=== PATIENT | female | born 1960 | race Caucasian/White ===

== ENCOUNTER 2019-11-21 10:02 | Emergency (ER) | payer OTHER, SELFPAY ==
[2019-11-21 10:16] VITALS: BP 103/79; PULSE 91; RESP 20; TEMP 38.1; O2SAT 99
--- NOTE | 2019-11-21 10:30 | ED.URI ---
HPI - URI/Sore Throat General Chief Complaint: Upper Respiratory Infection Stated Complaint: cough/bosch/chills/ear pn Time Seen by Provider: 11/21/19 10:22 Source: patient and RN notes reviewed Mode of arrival: ambulatory Limitations: no limitations History of Present Illness HPI Narrative: Patient presents today complaining of fever up to 101, congestion, rhinorrhea, cough, headache, body aches, intermittent shortness of breath. Symptoms began yesterday morning. Denies sore throat, nausea, vomiting, diarrhea. She does report history of asthma for which she uses albuterol and Breo. She has been taking Tylenol, NyQuil without relief. MD elicited complaint: fever and cough Related Data Allergies Allergy/AdvReac Type Severity Reaction Status Date / Time Sulfa (Sulfonamide Allergy Unknown Verified 10/07/18 08:02 Antibiotics) Review of Systems Review of Systems: Narrative: CONSTITUTIONAL: Denies chills, or sweats.+ Fever, body aches EYES: Denies visual changes, redness, or discharge. ENT: Denies sore throat, or otalgia.+ Rhinorrhea, congestion CARDIOVASCULAR: Denies chest pain, palpitations, or edema. RESPIRATORY: + Cough, intermittent shortness of breath GASTROINTESTINAL: Denies abdominal pain, nausea, vomiting, or diarrhea. GENITOURINARY: Denies dysuria or hematuria. SKIN: Denies rash, itching, or wounds. MUSCULOSKELETAL: Denies back pain, joint pain, or myalgia. NEUROLOGIC: Denies numbness, tingling, or weakness.+ Headache PSYCH: Denies depression or anxiety. [facility] Past Medical History Medical History (Updated 11/21/19 @ 10:34 by Shelby Carpio, [facility], ) Allergies Asthma Headache, migraine History of diverticulitis Renal stones Surgical History Surgical History (Updated 09/02/19 @ 09:19 by Janeth Boogie CMA) History of hysterectomy Family History Family History (Updated 10/07/18 @ 08:04 by DOCTOR UNKNOWN) Sibling Patient's sister is in good health Acute myocardial infarction Mother Family history of congestive heart failure Other Cerebrovascular accident Family history of cardiovascular disease Hypertension Social History Social History (Updated 09/02/19 @ 11:24 by Janeth Boogie CMA) Smoking status: Heavy tobacco smoker Alcohol intake: current Gender identity (if verbalized by the patient): Female Comments At time of signature, I have reviewed and agree with nursing past medical, surgical, social and family history unless otherwise noted. Please see nursing chart for further information. There is no relevant family history pertinent to the presenting complaint Exam Narrative: Exam Narrative: GENERAL: Ill-appearing, well-nourished, and in no acute distress. HEAD: Normocephalic, atraumatic. EYES: EOMI. No redness or drainage. Conjunctivae normal. ENT: Mucous membranes pink and moist. Nares tested. No rhinorrhea. TMs normal bilaterally. Throat normal with postnasal drainage. Uvula midline. NECK: Normal AROM. Supple. No lymphadenopathy. CHEST: No respiratory distress. Clear to auscultation. HEART: Regular rate and rhythm. No murmur appreciated. Normal peripheral pulses. EXTREMITIES: Normal range of motion. No edema. SKIN: Warm, dry, no rash. NEURO: No focal deficits. Alert and oriented x3. Gait steady. PSYCH: Normal affect. No signs of depression or anxiety. Course Vital Signs Vital signs: Vital Signs Temperature 100.6 F H 11/21/19 10:16 Pulse Rate 91 11/21/19 10:16 Respiratory Rate 11/21/19 10:16 Blood Pressure 103/79 11/21/19 10:16 Pulse Oximetry 99 11/21/19 10:16 Temperature 100.6 F H 11/21/19 10:16 Pulse Rate 91 11/21/19 10:16 Respiratory Rate 11/21/19 10:16 Blood Pressure 103/79 11/21/19 10:16 Pulse Oximetry 99 11/21/19 10:16 Reviewed MDM - URI/Sore Throat Differential Diagnosis Differential diagnosis: Likely upper respiratory infection, viral infection, bronchitis and influenza Lab Data Attestation
== END 2019-11-21 10:38 | disposition home or self-care (01) ==
PROVIDERS: Emergency Provider Nurse Practitioner; PCP Internal Medicine
DX: J10.1 Influenza due to other identified influenza virus with other respiratory manifestations (principal); F17.200 Nicotine dependence, unspecified, uncomplicated; J45.909 Unspecified asthma, uncomplicated
CPT/HCPCS: 87804; 99213; G0463

== ENCOUNTER 2020-01-06 14:38 | Outpatient (NON) | payer OTHER, SELFPAY ==
[2020-01-07 22:44] LABS: Pan-SARS RNA: NEGATIVE (NEGATIVE); SARS-CoV-2 RNA: NEGATIVE (NEGATIVE)
== END 2020-01-06 14:39 ==
PROVIDERS: PCP Internal Medicine; Visit Provider Nurse Practitioner
DX: R50.9 Fever, unspecified (principal); Z20.828 Contact with and (suspected) exposure to other viral communicable diseases
CPT/HCPCS: 87635; U0002

== ENCOUNTER → 2020-08-15 11:14 | Outpatient (CLI) | payer OTHER, SELFPAY ==
--- NOTE | ~2020-08-15 | CT_ITS ---
EXAMINATION: CT soft tissue neck wo con DATE: 08/15/2020 11:29 INDICATION: Foreign body sensation in the throat. TECHNIQUE: Computed tomography (CT) of the neck was performed without intravenous contrast. Automated exposure control and iterative reconstruction technique were employed. The dose-length product was 3 77.80 mGy-cm. COMPARISON: 08/08/2015 FINDINGS: Likely benign 4 mm hypodense left thyroid nodule. Unchanged chronic small likely sialolith inferior r ight parotid gland. Parotid glands are otherwise normal and symmetric. Submandibular glands are also normal and symmetric. There are scattered normal-sized lymph nodes in the neck, no pathologically e nlarged lymphadenopathy. No masses or foreign bodies identified. There is circumferential edematous- appearing wall thickening in the visualized proximal esophagus. The epiglottis and aryepiglottic fold s are normal. Visualized airway is clear. Mild biapical pleural-parenchymal scarring. Orbits are norm al. There is leftward deviation of the nasal septum. Likely prosthetic device extends across a perfor ation of the anterior cartilaginous portion of the nasal septum. There are also postoperative change of bilateral antral window procedures. Orbits are unremarkable. Mastoid air cells and middle ear cavi ties are clear. Mild cervical spondylosis. IMPRESSION: 1. No abnormal masses were foreign bodies identified. 2. Diffuse wall thickening in the proximal esophagus. Correlate clinically for esophagitis. Reviewed, dictated and finalized at [facility]. ANICAL SHOP LABORER
== END ==
PROVIDERS: PCP Internal Medicine; Visit Provider Otolaryngology
DX: T17.308A Unspecified foreign body in larynx causing other injury, initial encounter (principal); J34.2 Deviated nasal septum
CPT/HCPCS: 70490

== ENCOUNTER 2020-08-23 01:37 | Emergency (ER) | payer OTHER, SELFPAY ==
--- NOTE | ~2020-08-23 | XR_ITS ---
XR knee RT min 4V 08/23/2020 02:24 INDICATION: Right knee pain PROCEDURE: 4 views right knee COMPARISON: No prior studies for comparison. FINDINGS: Fracture, dislocation or subluxation is not identified. No significant joint effusion. The soft tissues appear within normal limits. No foreign bodies are identified. Mild osteoarthritis of t he knee. IMPRESSION: 1: NO ACUTE BONE OR JOINT ABNORMALITY IDENTIFIED. Reviewed, dictated and finalized at location A. BURN
--- NOTE | ~2020-08-23 | XR_ITS ---
XR ankle RT 2V, XR ankle LT 2V 08/23/2020 02:24 Indication: Ankle pain after fall Procedure: 2 views of each ankle Comparison: No prior studies for comparison. Findings: No acute fracture, subluxation or dislocation. Small degenerative calcaneal enthesophytes. Ankle mortise intact bilaterally. Talar dome is normal bilaterally. No significant soft tissue abnorm ality. No foreign bodies. Impression: 1: No acute fracture. Reviewed, dictated and finalized at location A. ATRIC PERSONAL CARE AIDE Impression: 1: No acute fracture. Impression: 1: No acute fracture.
--- NOTE | ~2020-08-23 | XR_ITS ---
XR foot LT min 3V 08/23/2020 03:32 Indication: Left foot pain Procedure: 4 views left foot Comparison: No prior studies for comparison. Findings: Osteopenia. Small degenerative calcaneal enthesophyte. No acute fracture, subluxation or di slocation. Mild osteoarthritis of the first toe. No significant soft tissue abnormality. No radiopaqu e foreign bodies. Impression: 1: No acute fracture. Reviewed, dictated and finalized at location A. DENTIAL PROPERTY MANAGER Impression: 1: No acute fracture.
[2020-08-23 01:42] VITALS: BP 108/65; PULSE 71; RESP 16; TEMP 36.3; O2SAT 100
--- NOTE | 2020-08-23 02:02 | ED.FALL ---
HPI - Fall General Chief Complaint: Fall Stated Complaint: fall Time Seen by Provider: 08/23/20 01:44 History of Present Illness HPI Narrative: Tripped and fell down one step onto bilateral knees. Twisted her ankles in the fall. Reports 10/10 pain in the left ankle. Also pain in the right knee and ankle. She was ambulatory prior to arrival. She did not take anything for the pain. Related Data Allergies Allergy/AdvReac Type Severity Reaction Status Date / Time Sulfa (Sulfonamide Allergy Unknown Rash Verified 08/23/20 01:53 Antibiotics) Review of Systems Review of Systems: All systems reviewed & are unremarkable except as noted in HPI and below Constitutional: Constitutional: Denies chills, Denies fever(s) and Denies weakness Cardiovascular: Cardiovascular: Denies chest pain Respiratory: Respiratory: Denies dyspnea Gastrointestinal: Gastrointestinal: Denies abdominal pain, Denies nausea and Denies vomiting Musculoskeletal: Musculoskeletal: Denies back pain Neurologic: Denies numbness and Denies weakness PMFSH Past Medical History Medical History Allergies Asthma Headache, migraine History of diverticulitis Renal stones Surgical History Surgical History History of hysterectomy Family History Family History Sibling Patient's sister is in good health Acute myocardial infarction Mother Family history of congestive heart failure Other Cerebrovascular accident Family history of cardiovascular disease Hypertension Social History Social History Smoking status: Current every day smoker Alcohol intake: current Gender identity (if verbalized by the patient): Female Exam Const: General: no acute distress and alert Nutritional Appearance: well nourished Orientation/consciousness: patient oriented x3 HENMT: Head: normal to inspection Resp: Effort & Inspection: normal respiratory effort Auscultation: clear to auscultation bilaterally Cardio: Rate: regular rate Rhythm: regular rhythm Other: 2+ DP and PT pulses bilaterally. Skin: Other: abrasions to right knee Neuro: General: patient oriented x3, moves all extremities and no focal motor deficits Speech: normal speech Extrem: Other: tenderness over right patella Course Vital Signs Vital signs: Vital Signs Temperature 36.3 C L 11/24/20 01:42 Pulse Rate 71 08/23/20 01:42 Respiratory Rate 16 08/23/20 01:42 Blood Pressure 108/65 08/23/20 01:42 Pulse Oximetry 100 08/23/20 01:42 Temperature 36.3 C L 08/23/20 01:42 Pulse Rate 71 08/23/20 01:42 Respiratory Rate 16 08/23/20 01:42 Blood Pressure 108/65 08/23/20 01:42 Pulse Oximetry 100 08/23/20 01:42 MDM - Fall Medical Records Attestation: I reviewed the patient's medical records. Imaging Data Attestation: I personally reviewed and interpreted this imaging study as follows: Discharge Plan Discharge Clinical Impression: Contusion of knee Qualifiers: Encounter type: initial encounter Laterality: right Qualified Code(s): S80.01XA - Contusion of right knee, initial encounter Sprain of foot Qualifiers: Encounter type: initial encounter Laterality: unspecified laterality Qualified Code(s): S93.609A - Unspecified sprain of unspecified foot, initial encounter Patient Disposition: Home, Self-Care Condition: Stable Instructions: Contusion in Adults (ED), Foot Sprain (ED) Prescriptions: No Action azithromycin 250 mg tablet See Rx Instructions PO .COMPLEX Qty: 6 RF: 0 albuterol sulfate [ProAir HFA] 90 mcg/actuation HFA aerosol inhaler 2 puff INHALATION Q4-6H PRN (Reason: Shortness Of Breath Or Wheezing) Qty: 18 RF: 0 Trelegy Ellipta 100-62.5-25 mcg blister with device 1 inh INHALATION DAILY Qty: 28
[2020-08-23] MEDS: KETOROLAC (*BKC) 60 MG/2 ML VIAL IM (02:55)
[2020-08-23 03:50] VITALS: BP 112/80; PULSE 64; RESP 16; TEMP 36.6; O2SAT 100
[2020-08-23] MEDS: HYDROcodone/acetaminophen (*CRX) 5-325 MG TABLET 1 TAB PO (03:52)
== END 2020-08-23 03:55 | disposition home or self-care (01) ==
PROVIDERS: Emergency Provider Emergency Medicine; PCP Internal Medicine
DX: S93.609A Unspecified sprain of unspecified foot, initial encounter (principal); S80.01XA Contusion of right knee, initial encounter; J45.909 Unspecified asthma, uncomplicated; Z87.442 Personal history of urinary calculi; W01.0XXA Fall on same level from slipping, tripping and stumbling without subsequent striking against object, initial encounter
CPT/HCPCS: 73564; 73600; 73630; 96372; 99284; A9270; J1885

== ENCOUNTER 2020-10-01 01:22 | Outpatient (CLI) | payer OTHER, SELFPAY ==
[2020-10-01 20:08] LABS: SARS-CoV-2 RNA PCR Negative
== END 2020-10-01 01:23 | disposition home or self-care (01) ==
LOC: ANHCOVIDDT 01:22
PROVIDERS: PCP Internal Medicine; Visit Provider Internal Medicine Gastroenterology
DX: Z01.812 Encounter for preprocedural laboratory examination (principal); Z20.822 Contact with and (suspected) exposure to COVID-19
CPT/HCPCS: C9803; U0003

== ENCOUNTER 2020-10-04 01:36 | Day surgery (SDC) | payer OTHER, SELFPAY ==
[2020-09-19 15:39] VITALS: BMI 26.9
[2020-10-04 07:25] VITALS: BP 124/81; PULSE 93; RESP 20; TEMP 36.3; O2SAT 93
[2020-10-04] MEDS: LACTATED RINGERS 1,000 ML 150 ML IV CONT (07:31)
--- NOTE | 2020-10-04 08:34 | PM.HPGS ---
History of Present Illness History of Present Illness Consent: Risks, benefits, and alternatives have been discussed and questions answered. Patient agrees to proceed with procedure. Chief complaint: abn findings dx image, neoplasm screening Narrative: Anastasiya Marin is a 59 year old female with dysphagia and thickened esophagus by CT scan, also 5 years ago had microscopic colitis now better without medication. Review of Systems Constitutional: Constitutional: Denies headache(s) and Denies weakness Eyes: Eyes: Denies blurry vision ENT: Reports Normal hearing present, Denies headache(s) and Denies neck pain Cardiovascular: Cardiovascular: Denies chest pain and Denies dyspnea Respiratory: Respiratory: Denies dyspnea Gastrointestinal: Gastrointestinal: Reports no additional gastrointestinal complaints Genitourinary: Genitourinary: Denies dysuria Musculoskeletal: Musculoskeletal: Denies neck pain Integumentary/Breasts: Skin/Breast: Denies dry skin Neurologic: Reports Normal hearing present, Denies headache(s) and Denies weakness Psychiatric: Psychiatric: Denies anxiety Endocrine: Endocrine: Denies change in body appearance Hematologic/Lymphatic: Hematologic/Lymphatic: Denies easy bleeding Allergic/Immunologic: Allergic/Immunologic: Denies urticaria PMFSH Past Medical History Medical History (Updated 08/29/20 @ 14:09 by Oseas Baker MD) Abnormal CT scan Allergies Asthma Encounter for screening colonoscopy Headache, migraine History of diverticulitis Renal stones Surgical History Surgical History History of hysterectomy Family History Family History Sibling Patient's sister is in good health Acute myocardial infarction Mother Family history of congestive heart failure Other Cerebrovascular accident Family history of cardiovascular disease Hypertension Social History Social History Smoking packs per day: 1 Smoking cigarettes per day: 20.0 Years smoked: 30 Smoking pack-years: 30.00 Smoking status: Heavy tobacco smoker Tobacco type: cigarettes Alcohol intake: current Drinks per week: 7 Alcohol use details: WINE Substance use: never Substance use type: does not use Living arrangements: with family Gender identity (if verbalized by the patient): Female Spiritual care concerns: No Meds Home Medications and Allergies Home Medications Medication Instructions Recorded Confirmed Type albuterol sulfate 90 mcg/actuation 2 puff INHALATION Q4-6H PRN #18 gm 01/07/20 10/04/20 Rx aerosol inhaler fluticasone fur. 100 mcg-umeclid 1 inh INHALATION DAILY #28 each 07/12/20 10/04/20 Rx 62.5 mcg-vilant 25 mcg inhalat.powder peg 3350-electrolytes 236 240 ml PO Q10M 09/07/20 10/04/20 History gram-22.74 gram-6.74 gram-5.86 gram solution zalimoclpsnd-eaq-wycc-FA-vit K 1 tablet PO DAILY 09/19/20 10/04/20 History [Adults Multivitamin] pantoprazole 40 mg PO DAILY 09/19/20 10/04/20 History sodium,potassium,mag sulfates 17.5 16 oz PO ONCE #354 ml 09/19/20 10/04/20 Rx gram-3.13 gram-1.6 gram oral soln Allergies Allergy/AdvReac Type Severity Reaction Status Date / Time Sulfa (Sulfonamide Allergy Intermediate Rash Verified 10/04/20 07:22 Antibiotics) Vital Signs Vital Signs - 24 hr 10/04/20 07:25 Temperature 97.4 F L Pulse Rate 93 Respiratory Rate 20 Blood Pressure 124/81 Pulse Oximetry 93 Exam Const: General: comfortable and no acute distress HENMT: General nose exam: Normal nares present Eyes: General: appearance normal, both eyes and all related structures Neck: Neck: no JVD Resp: Auscultation: clear to auscultation bilaterally Cardio: Rate: regular rate Rhythm: regular rhythm GI: Inspection: non-distended GI Palp: Yes Soft
--- NOTE | 2020-10-04 08:38 | WPDANESEPPF ---
Anes - Initial Pre Proc Eval Procedure: Operation Date: 10/04/20 08:30 Proposed Procedures p Esophagogastroduodenoscopy&Screen Colon - Oseas Baker MD Date/Time: 10/04/20 08:38 Surgeon: Oseas Baker MD Pre Op Diagnosis: abn findings dx image, neoplasm screening Patient Data Age: 59 Gender: F Height: 5 ft 7 in Weight: 78.1 kg Last Vital Signs Temp 97.4 F L 10/04/20 07:25 Pulse 93 10/04/20 07:25 Resp 20 10/04/20 07:25 BP 124/81 10/04/20 07:25 Pulse Ox 93 10/04/20 07:25 Allergies Allergy/AdvReac Type Severity Reaction Status Date / Time Sulfa (Sulfonamide Allergy Intermediate Rash Verified 10/04/20 07:22 Antibiotics) Home Medications Medication Instructions Recorded Confirmed Type albuterol sulfate 90 mcg/actuation 2 puff INHALATION Q4-6H PRN #18 gm 01/07/20 10/04/20 Rx aerosol inhaler fluticasone fur. 100 mcg-umeclid 1 inh INHALATION DAILY #28 each 07/12/20 10/04/20 Rx 62.5 mcg-vilant 25 mcg inhalat.powder peg 3350-electrolytes 236 240 ml PO Q10M 09/07/20 10/04/20 History gram-22.74 gram-6.74 gram-5.86 gram solution vzmpgveoxhih-eoo-dmdo-FA-vit K 1 tablet PO DAILY 09/19/20 10/04/20 History [Adults Multivitamin] pantoprazole 40 mg PO DAILY 09/19/20 10/04/20 History sodium,potassium,mag sulfates 17.5 16 oz PO ONCE #354 ml 09/19/20 10/04/20 Rx gram-3.13 gram-1.6 gram oral soln Patient hx anesthesia problems: none Family hx anesthesia problems: none PMFSH Past Medical History Medical History (Updated 08/29/20 @ 14:09 by Oseas Baker MD) Abnormal CT scan Allergies Asthma Encounter for screening colonoscopy Headache, migraine History of diverticulitis Renal stones Surgical History Surgical History History of hysterectomy Family History Family History Sibling Patient's sister is in good health Acute myocardial infarction Mother Family history of congestive heart failure Other Cerebrovascular accident Family history of cardiovascular disease Hypertension Social History Social History Smoking packs per day: 1 Smoking cigarettes per day: 20.0 Years smoked: 30 Smoking pack-years: 30.00 Smoking status: Heavy tobacco smoker Tobacco type: cigarettes Alcohol intake: current Drinks per week: 7 Alcohol use details: WINE Substance use: never Substance use type: does not use Living arrangements: with family Gender identity (if verbalized by the patient): Female Spiritual care concerns: No Anes - Eval Final PreProcedure Day of Procedure 10/04/20 08:38 Patient weight: normal Heart: regular rate and rhythm Lungs: clear to auscultation Airway: Mallampati scale class II Neurological: alert and oriented Last oral intake: >/= 8 hours ASA classification: II Emergent: no Anesthetic plan: proceed Anesthesia type and monitoring: general GIVS and standard monitoring Informed Consent: The patient's anesthetic plan and its attendant risks and benefits were discussed with the patient/family/POA. Questions were solicited and answers provided to the satisfaction of the patient/family/POA.
[2020-10-04] MEDS: BENZOCAINE (*SP) 60 ML SPRAY CAN (HURRICAINE) 1 SPRAY MUCOUS MEM (08:43)
[2020-10-04 09:11] VITALS: BP 112/74; PULSE 70; RESP 22; O2SAT 100
[2020-10-04 09:21] VITALS: BP 132/78; PULSE 65; RESP 24; O2SAT 100
[2020-10-04 09:31] VITALS: BP 149/79; PULSE 68; RESP 20; O2SAT 99
== END 2020-10-04 09:39 | disposition home or self-care (01) ==
PROVIDERS: PCP Internal Medicine; Visit Provider Internal Medicine Gastroenterology
PROC: 0DJ08ZZ Inspection of Upper Intestinal Tract, Via Natural or Artificial Opening Endoscopic (ICD-10-PCS; CPT 43235; principal; 2020-10-04 08:30)
DX: Z12.11 Encounter for screening for malignant neoplasm of colon (principal); D12.3 Benign neoplasm of transverse colon; K64.8 Other hemorrhoids; K44.9 Diaphragmatic hernia without obstruction or gangrene; R13.10 Dysphagia, unspecified; K29.50 Unspecified chronic gastritis without bleeding; K21.9 Gastro-esophageal reflux disease without esophagitis; K22.2 Esophageal obstruction; J45.909 Unspecified asthma, uncomplicated; F17.210 Nicotine dependence, cigarettes, uncomplicated; Z87.442 Personal history of urinary calculi; Z79.51 Long term (current) use of inhaled steroids; Z87.19 Personal history of other diseases of the digestive system
CPT/HCPCS: 45385; 45380; 43239; 43249; 88305; C1726; J2704; J7120; U0003

== ENCOUNTER → 2021-09-01 08:14 | Outpatient (CLI) | payer OTHER, SELFPAY ==
--- NOTE | ~2021-09-01 | CT_ITS ---
EXAMINATION: CT lung screening DATE: 09/01/2021 08:38 INDICATION: Nicotine dependence TECHNIQUE: Computed tomography (CT) of the chest was performed without intravenous contrast. The dose -length product was 83.96 mGy-cm. Automated exposure control and iterative reconstruction technique w ere employed. COMPARISON: None FINDINGS: Heart size is normal. No significant pleural or pericardial effusion. No significant vascul ar abnormality. No lymphadenopathy. The upper abdomen is unremarkable. There is evidence for chronic granulomatous disease. There is chronic apical pleural thickening/scarring. There is a 4 mm right upp er lobe nodule anteriorly. There is a 4 mm fissural nodule of the right lower lobe. No peripheral con solidation. There are a few additional nodules measuring 3 mm or less. No endobronchial lesions. IMPRESSION: 1. Lung-RADS category 2: Benign appearance or behavior. Continue annual screening with noncontrast lo w-dose chest CT in 12 months. Reviewed, dictated and finalized at location A. INTERPRETIVE RANGER IMPRESSION: 1. Lung-RADS category 2: Benign appearance or behavior. Continue annual screeni ng with noncontrast low-dose chest CT in 12 months.
== END ==
PROVIDERS: PCP Internal Medicine; Visit Provider Nurse Practitioner
DX: Z12.2 Encounter for screening for malignant neoplasm of respiratory organs (principal); F17.210 Nicotine dependence, cigarettes, uncomplicated
CPT/HCPCS: 71271

== ENCOUNTER → 2021-09-12 09:58 | Outpatient (CLI) | payer OTHER, SELFPAY ==
--- NOTE | ~2021-09-12 | XR_ITS ---
EXAMINATION: XR hip RT min 2V DATE: 09/12/2021 10:42 INDICATION: Pain in unspecified hip. TECHNIQUE: 2 views of right hip were obtained. COMPARISON: None. FINDINGS: Bone alignment is normal. No fracture. Right hip joint space is normal. There is severe lum bar spondylosis. IMPRESSION: 1. Normal right hip. Reviewed, dictated and finalized at location A. PHONE OPERATORS SUPERVISOR IMPRESSION: 1. Normal right hip.
== END ==
PROVIDERS: PCP Internal Medicine; Visit Provider Nurse Practitioner
DX: M25.551 Pain in right hip (principal)
CPT/HCPCS: 73502

== ENCOUNTER → 2021-10-19 02:23 | Outpatient (CLI) | payer OTHER, SELFPAY ==
[2021-10-19 21:12] LABS: SARS-CoV-2 RNA PCR Negative
== END ==
PROVIDERS: PCP Internal Medicine; Visit Provider Nurse Practitioner
DX: J02.9 Acute pharyngitis, unspecified (principal); Z20.822 Contact with and (suspected) exposure to COVID-19
CPT/HCPCS: C9803; U0003; U0005

== ENCOUNTER → 2021-11-03 10:37 | Outpatient (CLI) | payer OTHER, SELFPAY ==
--- NOTE | ~2021-11-03 | DEXA_ITS ---
Bone Density Report Name: LILA GOETZ Age: 60 Sex: Female Ethnicity: White Date of : 1960 Indication: postmenopausal; screening for osteoporosis; asthma or emphysema; hysterectomy; Referring Provider: Virgen Licea Study: Bone densitometry was performed. Exam Date: November 03, 2021 Accession number: [id number] Bone Density: Region BMD T-score Z-score Classification AP Spine (L1-L4) 0.830 -2.0 -0.6 Osteopenia Femoral Neck (Left) 0.533 -2.8 -1.6 Osteoporosis Total Hip (Left) 0.627 -2.6 -1.6 Osteoporosis Femoral Neck (Right) 0.571 -2.5 -1.2 Osteoporosis Total Hip (Right) 0.662 -2.3 -1.4 Osteopenia Total Hip Mean 0.645 -2.5 -1.5 Osteopenia World Health Organization criteria for BMD impression classify patients as: Normal (T-score at or above -1.0), Osteopenia (T-score between -1.0 and -2.5), or Osteoporosis (T-score at or below -2.5). 10-year Fracture Risk: FRAX not reported because: Some T-score for Spine Total or Hip Total or Femoral Neck at or below -2.5 Clinical Information Provided by Patient: Smokes Has the following medical conditions: Asthma or Emphysema, Hysterectomy, MULTI VITAMIN Patient maximum height was 67 Menopause Age: 30 Drinks caffeinated beverages Onset of menses at age 15 Number of children 1 Impression: The patient has osteoporosis, based on the Left Femoral Neck T-score. The patient has risk factors, including: smoking. Discussion: INCREASED RISK OF FRACTURE. BONE DENSITY IS UNDESIRABLY LOW AT ONE OR MORE SKELETAL SITES, CONSISTENT WITH POSTMENOPAUSAL OSTEOPOROSIS. This patient's lowest T-score meets the World Health Organization's (WHO) criteria for osteoporosis at one or more sites (T-score -2.5 or below). In untreated patients, the risk of osteoporotic fracture increases approximately two-fold for each 1.0 SD decrease in T-score. Low bone density is not the only risk factor for fracture; also consider factors such as patient's age, frailty or poor health, risk of falling, risk of injury, previous osteoporotic fracture, family history of osteoporosis, cigarette smoking, low body weight, etc. Not everyone with low bone mineral density has osteoporosis; osteomalacia and other metabolic bone disorders should also be considered. Patients who have osteoporosis should be evaluated for specific diseases and conditions (secondary causes) that may cause or contribute to bone loss. The [place] [employer] Endocrinologists (AACE) and National Osteoporosis Foundation (NOF) recommend pharmacologic intervention for all postmenopausal women whose T-score is in this range. The patient should follow a healthful lifestyle (good nutrition with adequate calcium and vitamin D, and appropriate weight-bearing exercise). Follow-Up: Consider a repeat BMD and Vertebral Fracture A
--- NOTE | ~2021-11-03 | MM_ITS ---
EXAMINATION: MM screening al BI w zehra HISTORY: Screening TECHNIQUE: Craniocaudal and mediolateral oblique 3-D tomosynthesis images were obtained and synthetic 2-D images were generated. CAD analysis was submitted and interpreted. COMPARISON: 08/29/2016 BREAST PARENCHYMAL COMPOSITION: There are scattered areas of fibroglandular density. FINDINGS: There is no evidence of suspicious mass, calcification, or architectural distortion to sugg est malignancy in either breast. There has been no suspicious interval change. IMPRESSION: 1. No mammographic evidence of malignancy. 2. Recommend routine screening mammography in one year. BI-RADS Category 1: Negative Reviewed, dictated and finalized at location A. NT TRAINER
== END ==
PROVIDERS: PCP Internal Medicine; Visit Provider Nurse Practitioner
DX: Z12.31 Encounter for screening mammogram for malignant neoplasm of breast (principal); Z78.0 Asymptomatic menopausal state
CPT/HCPCS: 77063; 77067; 77080

== ENCOUNTER → 2022-09-04 12:41 | Outpatient (CLI) | payer OTHER, SELFPAY ==
--- NOTE | ~2022-09-04 | CT_ITS ---
EXAMINATION: CT sinus wo con DATE: 09/04/2022 13:05 INDICATION: Chronic sinusitis. Deviated septum surgery years ago. TECHNIQUE: Computed tomography (CT) of the paranasal sinuses was performed without contrast. Iterativ e reconstruction technique was employed. Exam dose: 259.66 mGy-cm total exam DLP. COMPARISON: 08/08/2015 CT brain FINDINGS: There is leftward bowing of the nasal septum. There is resection of the left inferior nasal turbinate. Bilateral nasal antral windows including resection of the uncinate processes. Status post bilateral partial ethmoidectomies. Frontal sinuses are quite small. No significant mucoperiosteal severity air-fluid level or opacificat ion of the paranasal sinuses. The mastoid air cells are normally developed and aerated. Middle and inner ear apparatus appears norm al bilaterally. IMPRESSION: Leftward bowing of nasal septum Status post bilateral nasal antral windows with associated resection of the uncinate processes Patent paranasal sinuses and mastoid air cells Reviewed, dictated and finalized at Location A. Reviewed, dictated and finalized at location B. TENANCE MAN IMPRESSION: Leftward bowing of nasal septum Status post bilateral nasal antral windows with associated resection of the unc inate processes Patent paranasal sinuses and mastoid air cells
== END ==
PROVIDERS: PCP Internal Medicine; Visit Provider Nurse Practitioner
DX: J32.9 Chronic sinusitis, unspecified (principal); J34.2 Deviated nasal septum; Z98.890 Other specified postprocedural states
CPT/HCPCS: 70486

== ENCOUNTER 2022-09-10 11:20 | Outpatient (CLI) | payer OTHER, SELFPAY ==
--- NOTE | ~2022-09-10 | CT_ITS ---
EXAMINATION: CT abdomen pelvis wo con DATE: 09/10/2022 11:38 INDICATION: Right flank pain. TECHNIQUE: Computed tomography (CT) of the abdomen and pelvis was performed without intravenous contr ast. Automated exposure control and iterative reconstruction technique were employed. The dose-length product was 265.37 mGy-cm. COMPARISON: CT abdomen and pelvis 01/19/2016 FINDINGS: The visualized portions of the lung bases are clear without pneumonia or pleural effusion. The heart size is normal. No pericardial effusion. The liver, gallbladder, spleen, pancreas, adrenal glands, and kidneys are normal. There is no urolithiasis. There are no dilated loops of bowel. The ap pendix is normal. There is a 5.0 cm cyst in the left adnexa. There are no pathologically enlarged lym ph nodes. There is no free intraperitoneal fluid. There is severe lumbar spondylosis. IMPRESSION: 1. 5.0 cm cyst in left adnexa, probably benign. Pelvis ultrasound is recommended. 2. No urolithiasis. Reviewed, dictated and finalized at location A. ERSMITH HELPER IMPRESSION: 1. 5.0 cm cyst in left adnexa, probably benign. Pelvis ultrasound is recommende d. 2. No urolithiasis.
== END 2022-09-10 11:21 | disposition home or self-care (01) ==
PROVIDERS: PCP Internal Medicine; Visit Provider Clinical Nurse Specialist
DX: N20.0 Calculus of kidney (principal); N94.89 Other specified conditions associated with female genital organs and menstrual cycle
CPT/HCPCS: 74176

== ENCOUNTER 2022-09-10 12:10 | Outpatient (CLI) | payer OTHER, SELFPAY ==
[2022-09-10 12:47] LABS: Alanine Aminotransferase 22 U/L (6-35); Albumin Level 4.6 g/dL (3.5-5.1); Alkaline Phosphatase 104 U/L (38-126); Anion Gap 7 mmol/L (8-16); Aspartate Amino Transferase 33 U/L (14-36); Basophils Absolute Auto 0.1 K/mm3 (0.0-0.1); Basophils Percent Auto 0.8 % (0.2-1.2); Bilirubin,Total 0.5 mg/dL (0.2-1.3); Blood Urea Nitrogen 13 mg/dL (7-17); Calcium 9.2 mg/dL (8.4-10.2); Carbon Dioxide 30 mmol/L (22-30); Chloride 101 mmol/L (98-107); Cholesterol 292 mg/dL (0-200); Eosinophils Absolute Auto 0.1 K/mm3 (0-0.3); Estimated Glomerular Filt Rate > 60; Glucose 94 mg/dL (65-110); HDL Direct 59 mg/dL; Hematocrit 43.8 % (37.0-47.0); Hemoglobin 14.5 g/dL (12.0-15.0); Immature Granulocyte Absolute 0.04 K/mm3 (0.00-0.031); Immature Granulocyte Percent A 0.4 % (0-0.5); Lymphocytes Absolute Auto 2.68 K/mm3 (0.9-3.2); Lymphocytes Percent Auto 29.6 % (18.3-44.2); Mean Corpuscular HGB Conc 33.1 g/dl (32-36); Mean Corpuscular Hemoglobin 34.6 pg (26-34); Mean Corpuscular Volume 104.5 fl (80-100); Mean Platelet Volume 9.3 fl (7.4-10.4); Monocytes Absolute Auto 0.5 K/mm3 (0.1-0.6); Monocytes Percent Auto 5.6 % (2.6-8.5); Neutrophils Absolute Auto 5.7 K/mm3 (1.3-6.7); Neutrophils Percent Auto 62.6 % (45.5-73.1); Platelet Count Result 331 k/mm3 (150-375); Potassium 4.2 mmol/L (3.4-5.0); Red Blood Count 4.19 M/mm3 (4.2-5.4); Red Cell Distribution Width 13.1 % (11.5-14.5); Sodium 138 mmol/L (137-145); Triglycerides 244 mg/dL (<150)
[2022-09-10 12:57] LABS: LDL Cholesterol Direct 162 mg/dL
[2022-09-10 13:16] LABS: Appearance Urine Clear (Clear); Bilirubin Urine Negative (Negative); Blood Urine Negative (Negative); Glucose Urine UA Negative (Negative); Ketones Urine Negative (Negative); Leukocyte Esterase Ur Negative LEU/UL (Negative); Nitrate Urine Negative (Negative); Protein Urine Negative (Negative); Specific Grav Ur 1.015 (1.001-1.035); Urobilinogen Urine 0.2 mg/dL (<2.0); pH Urine 6.5 (5.0-9.0)
[2022-09-10 13:34] LABS: Add Urine Microscopic? NO; Color Urine Light Yellow (Yellow)
== END 2022-09-10 12:11 | disposition home or self-care (01) ==
LOC: ANHLAB 12:12
PROVIDERS: PCP Internal Medicine; Visit Provider Clinical Nurse Specialist
DX: J45.909 Unspecified asthma, uncomplicated (principal); E78.5 Hyperlipidemia, unspecified; R30.0 Dysuria
CPT/HCPCS: 36415; 74176; 80053; 80061; 81003; 85025

== ENCOUNTER 2022-09-12 12:38 | Outpatient (CLI) | payer OTHER, SELFPAY ==
--- NOTE | ~2022-09-12 | US_ITS ---
Pelvic ultrasound. Clinical History: Unspecified condition associated with female genitalia, left adnexal cyst Technique: Realtime transabdominal scanning of the pelvis was performed. Correlation made with CT scan dated 09/10/2022. Findings: The uterus is absent, compatible with prior hysterectomy. There is a 3.4 x 4.9 x 3.7 cm simple appearing cystic mass in the left adnexal region. Patient report s bilateral prior oophorectomy. No normal ovary identified in either side. There is no evidence of free fluid in the cul de sac. Impression: 3.4 x 4.9 x 3.7 cm simple appearing cyst in the left pelvis. This corresponds with lesion seen on rec ent CT scan, and could reflect postoperative seroma or lymphocele given patient provided history of p rior bilateral oophorectomy. Consider one-year follow-up exam to reassess. Reviewed, dictated and finalized at location [] /HOSTESS Impression: 3.4 x 4.9 x 3.7 cm simple appearing cyst in the left pelvis. This corresponds w ith lesion seen on recent CT scan, and could reflect postoperative seroma or ly mphocele given patient provided history of prior bilateral oophorectomy. Consid er one-year follow-up exam to reassess.
== END 2022-09-12 12:39 | disposition home or self-care (01) ==
LOC: ANHIMG 12:39
PROVIDERS: PCP Internal Medicine; Visit Provider Clinical Nurse Specialist
DX: N94.9 Unspecified condition associated with female genital organs and menstrual cycle (principal)
CPT/HCPCS: 76856

== ENCOUNTER 2022-11-07 08:18 | Outpatient (CLI) | payer OTHER, SELFPAY | END 2022-11-07 08:19 | disposition home or self-care (01) | LOC: ANHAUDIO 08:19 | PROVIDERS: PCP Internal Medicine; Visit Provider Otolaryngology | DX: H91.92 Unspecified hearing loss, left ear (principal) | CPT/HCPCS: 92557; 92567 ==

== ENCOUNTER → 2022-12-24 13:19 | Outpatient (CLI) | payer OTHER, SELFPAY ==
--- NOTE | ~2022-12-24 | DEXA_ITS ---
Bone Density Report Name: LILA GOETZ Age: 62 Sex: Female Ethnicity: White Date of : 1960 Indication: postmenopausal osteoporosis; monitoring treatment; asthma or emphysema; hysterectomy; Referring Provider: Rand Lee Study: Bone densitometry was performed. Exam Date: December 24, 2022 Accession number: [id number] Bone Density: Region BMD T-score Z-score Classification AP Spine (L1-L4) 0.847 -1.8 -0.3 Osteopenia Femoral Neck (Left) 0.541 -2.8 -1.5 Osteoporosis Total Hip (Left) 0.630 -2.6 -1.6 Osteoporosis Femoral Neck (Right) 0.573 -2.5 -1.2 Osteoporosis Total Hip (Right) 0.662 -2.3 -1.3 Osteopenia Total Hip Mean 0.646 -2.5 -1.5 Osteopenia World Health Organization criteria for BMD impression classify patients as: Normal (T-score at or above -1.0), Osteopenia (T-score between -1.0 and -2.5), or Osteoporosis (T-score at or below -2.5). 10-year Fracture Risk: FRAX not reported because: Some T-score for Spine Total or Hip Total or Femoral Neck at or below -2.5 Treated for osteoporosis Previous Exams: Region Exam Age BMD T-score BMD Change BMD Change Date g/cm2 vs Baseline vs Previous AP Spine(L1-L4) 12/24/2022 62 0.847 -1.8 0.017 0.017 11/03/2021 60 0.830 -2.0 Total Hip(Left) 12/24/2022 62 0.630 -2.6 0.004 0.004 11/03/2021 60 0.627 -2.6 Total Hip(Right) 12/24/2022 62 0.662 -2.3 0.000 0.000 11/03/2021 60 0.662 -2.3 *Denotes significance at 95% confidence level, LSC for AP Spine = 0.022 g/cm2, LSC for Total Hip = 0.027 g/cm2 Clinical Information Provided by Patient: Is being treated for osteoporosis Has used the following medications: Evista (i.e. raloxifene), Vitamin D, MULT VIT Has the following medical conditions: Asthma or Emphysema, Hysterectomy Patient maximum height was 67 Menopause Age: 30 Drinks caffeinated beverages Onset of menses at age 15 Number of children 1 Impression: The patient has osteoporosis, based on the Left Femoral Neck T-score. No significant bone loss was observed. Discussion: PATIENT UNDER TREATMENT WITH NO SIGNIFICANT BMD LOSS SINCE LAST EXAM. In an untreated patient, BMD typically declines with age. A lack of decline or gain is usually a sign that treatment is efficacious and fracture risk is reduced. It is important to ask patients whether they are taking their medications and to encourage continued and appropriate compliance w
--- NOTE | ~2022-12-24 | MM_ITS ---
EXAMINATION: MM screening [facility] BI w zehra HISTORY: Screening TECHNIQUE: Craniocaudal and mediolateral oblique 3-D tomosynthesis images were obtained and synthetic 2-D images were generated. CAD analysis was submitted and interpreted. COMPARISON: Comparison to multiple prior studies sequentially, with oldest reviewed study dated 08/02. BREAST PARENCHYMAL COMPOSITION: There are scattered areas of fibroglandular density. FINDINGS: There is no evidence of suspicious mass, calcification, or architectural distortion to sugg est malignancy in either breast. There has been no suspicious interval change. IMPRESSION: 1. No mammographic evidence of malignancy. 2. Recommend routine screening mammography in one year. BI-RADS Category 1: Negative Reviewed, dictated and finalized at location A.
== END ==
PROVIDERS: PCP Internal Medicine; Visit Provider Clinical Nurse Specialist
DX: Z12.31 Encounter for screening mammogram for malignant neoplasm of breast (principal); Z78.0 Asymptomatic menopausal state; M85.89 Other specified disorders of bone density and structure, multiple sites; M81.0 Age-related osteoporosis without current pathological fracture
CPT/HCPCS: 77063; 77067; 77080

== ENCOUNTER → 2023-08-29 10:12 | Outpatient (CLI) | payer OTHER, SELFPAY ==
--- NOTE | ~2023-08-29 | US_ITS ---
EXAMINATION: US pelvic complete DATE: 08/29/2023 10:26 INDICATION: Adnexal cyst follow-up Comparison: TECHNIQUE: Multiple transabdominal sonographic images of the pelvis performed. FINDINGS: The uterus and ovaries are surgically absent. There is a left adnexal cyst measuring 5.8 x 4.5 x 4.8 cm compared with 4.9 x 3.7 x 3.4 cm on prior examination. There are low level internal echo es with posterior acoustic enhancement There is no free fluid in the pelvis. There are no abnormal m asses seen on either side. IMPRESSION: 1. Minimally complicated 5.8 cm left adnexal cyst, slightly increased in size compared with prior nicola dy. Considerations include paraovarian/paratubal cyst, peritoneal inclusion cysts and less likely cys tic neoplasm. Recommend further evaluation with MRI of the pelvis without and with contrast. Reviewed, dictated and finalized at location L. BASKET TOP MAKER comparison to 09/12/2022 IMPRESSION: 1. Minimally complicated 5.8 cm left adnexal cyst, slightly increased in size c ompared with prior study. Considerations include paraovarian/paratubal cyst, pe ritoneal inclusion cysts and less likely cystic neoplasm. Recommend further jorje luation with MRI of the pelvis without and with contrast.
== END ==
PROVIDERS: PCP Internal Medicine; Visit Provider Clinical Nurse Specialist
DX: N94.9 Unspecified condition associated with female genital organs and menstrual cycle (principal)
CPT/HCPCS: 76856

== ENCOUNTER → 2023-09-25 10:42 | Outpatient (CLI) | payer OTHER, SELFPAY ==
--- NOTE | ~2023-09-25 | MR_ITS ---
EXAMINATION: MR pelvis wo/w con DATE: 09/25/2023 11:59 INDICATION: Unspecified condition associated with female genitalia. Pelvic pain. Pelvic cyst. TECHNIQUE: Magnetic resonance imaging (MRI) of the pelvis was performed without and with 15 mL MultiH ance intravenous contrast. COMPARISON: Pelvis ultrasound 08/29/2023, CT abdomen and pelvis 09/10/2022 FINDINGS: There are no dilated loops of bowel. There are no pathologically enlarged lymph nodes. There is no fr ee intraperitoneal fluid. There are changes of hysterectomy. There is no visualized ovarian tissue. I n the left adnexa, there is a 6.2 x 4.3 x 4.3 cm cyst. No enhancing component. IMPRESSION: 1. 6.2 cm cyst in the left adnexa, likely a peritoneal inclusion cyst. Reviewed, dictated and finalized at location E. D SALES CONSULTANT
== END ==
PROVIDERS: PCP Clinical Nurse Specialist; Visit Provider Clinical Nurse Specialist
DX: N94.9 Unspecified condition associated with female genital organs and menstrual cycle (principal)
CPT/HCPCS: 72197; A9577

== ENCOUNTER 2023-11-13 09:44 | Outpatient (CLI) | payer OTHER, SELFPAY ==
[2023-11-16 02:38] LABS: CA-125 11 U/mL (<35)
== END 2023-11-13 09:45 | disposition home or self-care (01) ==
LOC: ANHLAB 09:46
PROVIDERS: PCP Clinical Nurse Specialist; Visit Provider Obstetrics & Gynecology
DX: R19.09 Other intra-abdominal and pelvic swelling, mass and lump (principal)
CPT/HCPCS: 36415; 86304

== ENCOUNTER 2023-12-30 09:59 | Outpatient (CLI) | payer OTHER, SELFPAY ==
--- NOTE | ~2023-12-30 | MM_ITS ---
EXAMINATION: MM screening al BI w zehra HISTORY: Screening TECHNIQUE: Craniocaudal and mediolateral oblique 3-D tomosynthesis images were obtained and synthetic 2-D images were generated. CAD analysis was submitted and interpreted. COMPARISON: Comparison to multiple prior studies sequentially, with oldest reviewed study dated 12/2021. BREAST PARENCHYMAL COMPOSITION: Not dense: There are scattered areas of fibroglandular density. FINDINGS: There is no evidence of suspicious mass, calcification, or architectural distortion to sugg est malignancy in either breast. There has been no suspicious interval change. IMPRESSION: 1. No mammographic evidence of malignancy. 2. Recommend routine screening mammography in one year. BI-RADS Category 1: Negative Reviewed, dictated and finalized at location B.
== END 2023-12-30 10:00 ==
LOC: MICIMG 10:00
PROVIDERS: PCP Clinical Nurse Specialist; Visit Provider Clinical Nurse Specialist
DX: Z12.31 Encounter for screening mammogram for malignant neoplasm of breast (principal)
CPT/HCPCS: 77063; 77067

== ENCOUNTER 2024-05-13 08:11 | Outpatient (CLI) | payer OTHER, SELFPAY ==
--- NOTE | ~2024-05-13 | US_ITS ---
US pelvic complete w TV Ordering provider: Chintan Quesada MD History: . K66.8 - Other specified disorders of peritoneum . Comparison: August 29, 2023 Technique: Transabdominal and endovaginal ultrasound of the pelvis (Doppler ultrasound interrogation techniques used as needed for this exam.) FINDINGS: UTERUS: Surgically removed. CUL DE SAC: No free fluid. RIGHT OVARY: Surgically removed. LEFT OVARY: Surgically removed. ADNEXA: Cystic areas seen in the left adnexa measuring 6.7 x 3.5 x 5.1 cm. IMPRESSION: Large Left adnexal cystic mass which is slightly larger than the previous study are unchanged. Differ ential as previously mentioned but cystadenoma should be considered at this age. Follow-up advised. N o additional Uterus, and both ovaries are surgically removed. Reviewed, dictated and finalized at location A. IMPRESSION: Large Left adnexal cystic mass which is slightly larger than the previous study are unchanged. Differential as previously mentioned but cystadenoma should be considered at this age. Follow-up advised. No additional Uterus, and both ovaries are surgically removed.
== END 2024-05-13 08:12 ==
LOC: MICIMG 08:12
PROVIDERS: PCP Internal Medicine; Visit Provider Obstetrics & Gynecology
DX: K66.8 Other specified disorders of peritoneum (principal); N83.8 Other noninflammatory disorders of ovary, fallopian tube and broad ligament; Z90.722 Acquired absence of ovaries, bilateral
CPT/HCPCS: 76830; 76856

== ENCOUNTER 2025-01-04 09:40 | Outpatient (CLI) | payer OTHER, SELFPAY ==
--- NOTE | ~2025-01-04 | DEXA_ITS ---
Bone Density Report Name: LILA GOETZ Age: 64 Sex: Female Ethnicity: White Date of : 1960 Indication: postmenopausal; screening for osteoporosis; hysterectomy; Referring Provider: DANK HIGGINBOTHAM Study: Bone densitometry was performed. Exam Date: January 04, 2025 Accession number: [id number] Bone Density: Region BMD T-score Z-score Classification AP Spine(L1-L4) 0.868 -1.6 0.0 Osteopenia Femoral Neck (Left) 0.578 -2.4 -1.0 Osteopenia Total Hip (Left) 0.665 -2.3 -1.2 Osteopenia Femoral Neck (Right) 0.588 -2.3 -0.9 Osteopenia Total Hip (Right) 0.725 -1.8 -0.7 Osteopenia Total Hip Mean 0.695 -2.1 -1.0 Osteopenia World Health Organization criteria for BMD impression classify patients as: Normal (T-score at or above -1.0), Osteopenia (T-score between -1.0 and -2.5), or Osteoporosis (T-score at or below -2.5). 10-year Fracture Risk: FRAX not reported because: Treated for osteoporosis Clinical Information Provided by Patient: Is being treated for osteoporosis Has used the following medications: Evista (i.e. raloxifene), Vitamin D Has the following medical conditions: Hysterectomy Patient maximum height was 67.0 Menopause Age: 31 No regular weight bearing exercise Does not regularly consume dairy products Drinks caffeinated beverages Onset of menses at age 15 Number of children 1 Impression: The patient has low bone mass, based on the Left Femoral Neck T-score. Discussion: It is important to ask patients whether they are taking their medications and to encourage continued and appropriate compliance with their osteoporosis therapies to reduce fracture risk. It is also important to review their risk factors and encourage appropriate calcium and vitamin D intakes, exercise, fall prevention and other lifestyle measures. Follow-Up: Consider a repeat BMD and Vertebral Fracture Assessment (VFA) exam in 2 years or sooner if medically necessary, to reassess this patient's status. Reported by: CRYSTAL on 01/04/2025 10:19:00 AM. Reviewed, dictated and finalized at location AMarjorie CUEVAS
--- OUTSIDE RECORDS SUMMARY | 2025-01-04 10:41 | XMS_ITS | Clinical Summary ---
Author Organization [facility] Address [address] [place] [address] Phone Care Team Providers Care [employer] Foreign Language Tutor Name Role Phone Unavailable Primary Care Provider Unavailabl e Social History Tobacco Use Types Packs/Day Years Used Date Smoking Tobacco: Never Assessed Comments Unknown Sex and Gender Information Value Date Recorded Sex Assigned at Not on file Legal Sex Female 3:45 AM CDT Gender Identity Not on file Sexual Orientation Not on file Plan of Treatment Not on file
--- OUTSIDE RECORDS SUMMARY | 2025-01-04 10:41 | XMS_ITS | Referral Summary ---
Author Organization [facility] Address [address] [place] [address] Care Team Providers Care Card Mounter Name Role Phone Silver Ashford DO Primary Care Provider [phone] Chintan Quesada MD Unavailable [phone] Allergies Active Allergy Reactions Criticality Noted Date Comments Sulfa (Sulfonamide Antibiotics) Rash Medium 06/01 Medications Trelegy Ellipta 100-62.5-25 mcg inhalerIndications :Bronchospasm Prevention with COPD,Maintenance Therapy for Asthma Inhale 1 puff every morning [address] (PROTONIX) 40 mg EC tabletIndications: Treatment of Non-Bleeding Gastric Disorder Take 1 tablet (40 mg total) by mouth every morning 4 Active raloxifene (EVISTA) 60 mg tabletIndications: Post-Menopausal Osteoporosis Take 1 tablet (60 mg total) by mouth raking machine operator before breakfast 4 Active multivitamin with minerals tabletIndications: Vitamin Deficiency Prevention Take 1 tablet by mouth every morning Active cholecalciferol (Vitamin D3) 2000 unit capsuleIndications :Vitamin D Deficiency Take 1 capsule (2,000 Units total) by mouth raking machine operator before breakfast Active krill oil 500 mg capsuleIndications :supplement Take 1 capsule by mouth every morning Active cyanocobalamin, vitamin B-12, (Vitamin B-12) 5,000 mcg tablet, sublingualIndicati ons:Prevention of Vitamin B12 Deficiency [address] 1 tablet/capsul e under the tongue raking machine operator before breakfast Active acetaminophen (TYLENOL) 500 mg tablet Take 2 tablets (1,000 mg total) by mouth every 6 (six) hours as needed for pain 60 tablet 4 Active ibuprofen (ADVIL,MOTRIN) 600 mg tablet Take 1 tablet (600 mg total) by mouth every 6 (six) hours as needed for pain 30 tablet 4 Active oxyCODONE (ROXICODONE) 5 mg immediate release tabletIndications: Pain Take 1 tablet (5 mg total) by mouth every 4 (four) hours as needed for pain 10 tablet 4 Active ondansetron ODT (ZOFRAN-ODT) 4 mg disintegrating tablet Take 1 tablet (4 mg total) by mouth every 8 (eight) hours as needed for nausea or vomiting 20 tablet 4 Active polyethylene glycol (MIRALAX) 17 gram/dose bulk powder Take 17 g by mouth daily 527 g 4 Active Active Problems Problem Noted Date Diagnosed Date Adnexal mass 06/24/2024 Immunizations Immunization Administration Dates Next Due Influenza, Quadrivalent, Anay l Culture-based MDCK, Preservative Free, Antibiotic Free, Intramuscular 07/12/2023,06/25/2022 Influenza, Quadrivalent, Spl it, Intramuscular 07/14/2020 Influenza, Quadrivalent, Spl it, Preservative Free, Intramuscular 07/01/2021,07/16/2019,07/13/2018 Influenza, Trivalent, IM (MDV) 7,07/10/2015,07/13/2014,07/14 Influenza, Trivalent, Preser vative Free, Intramuscular 06/19/2024,07/02/2016 RSV Vaccine, Pref, Recombina nt, Subunit, Adjuvanted, PF, IM (Arexvy) 10/05/2023 Social History Tobacco Use Types Packs/Day Years Used Date Smoking Tobacco: Former Cigarettes Q uit: 01/2021 Passive Smoke Exposure: Past Smokeless Tobacco: Never Tobacco Cessation:Counseling Given: Not Answered AUDIT-C Answer Date Recorded Q1: How often do you have a drink containing alc ohol? 2-3 times a week 08/06/2024 Q2: How many drinks containi ng alcohol do you have on a typical day when you are drinking? 3 or 4 08/06/2024 Q3: How often do you have si x or more drinks on one occasion? Never 08/06/2024 Personal Safety Answer Date Recorded Have you ever been in or are you currently in a harmful physical or emotional relationship or is someone making you feel afraid or unsafe? Denies 08/06/2024 Comments No Sex and Gender Information Value Date Recorded Sex Assigned at Not on file Legal Sex Female 6:00 AM ANIMAL BIOLOGIST Gender Identity Not on file Sexual Orientation Not on file Last Filed Vital Signs Vital Sign Reading Time Taken Comments Blood Pressure 149/86 08/19/2024 2:36 PM ANIMAL BIOLOGIST Pulse 85 08/19/2024 2:36 PM ANIMAL BIOLOGIST Temperature 36.6 C (97.9 F) 08/19/2024 2:36 PM ANIMAL BIOLOGIST Respiratory Rate 16 08/19/2024 2:36 PM ANIMAL BIOLOGIST Oxygen Saturation 99% 08/19/2024 2:36 PM ANIMAL BIOLOGIST Inhaled Oxygen Concentration - - Weight 82.6 kg (182 lb 1.6 oz) 08/19/2024 2:36 P M ANIMAL BIOLOGIST Height 170.2 cm (5' 7.01 ) 08/19/2024 2:36 PM CS T Body Mass Index 28.51 08/19/2024 2:36 PM ANIMAL BIOLOGIST Plan of Treatment Not on file Insurance [employer] OPEN ACCESS [employer] OPEN ACCESS Care Teams Card Mounter Relationship Specialty Start Date End Date Silver Ashford DO PCP - General Internal Medicine 05/28/24 Chintan Quesada MD [id number] [address] Referring Physician Obstetrics and Gynecology 05/28/24
--- OUTSIDE RECORDS SUMMARY | 2025-01-04 10:41 | XMS_ITS | Clinical Summary ---
Author Organization [facility] Address [address] [place] [address] Care Team Providers Care Manager Cardiology Name Role Phone Unavailable Primary Care Provider Unavailabl e Source Comments [facility],non-owned Affiliates and Associated Physician Practices is amultiple site organization consisting of ambulatory clinics and hospital sitesin [place], [place], [place] and [place]. This disclosure is being madepursuant to the Care Everywhere program and may not contain all information available regarding this patient. Last updated 18.[facility] Jajah Social History Tobacco Use Types Packs/Day Years Used Date Smoking Tobacco: Never Assessed Sex and Gender Information Value Date Recorded Sex Assigned at Not on file Gender Identity Not on file Sexual Orientation Not on file Plan of Treatment Health Maintenance Due Date Last Done Comments COLOGUARD (AGES 45-75) - COL ON CA SCREENING 1960 COLON MONITORING 1961 COLONOSCOPY - COLON CA SCREENING 1961 CT COLONOGRAPHY - COLON CA SCREENING 1960 Colorectal Cancer Screening 1960 FIT - COLON CA SCREENING 1961 FLEX SIG - COLON CA SCREENING 1960 LIPID TESTING 1960 MAMMOGRAM 1960 PAP SMEAR 1961 HIV SCREENING 1976 HEPATITIS C SCREENING 12/09/1979 DTAP/TDAP/TD VACCINES (1 - Tdap) 1980 PNEUMOCOCCAL VACCINE 50+ (1 of 1 - PCV) 12/14/2011 ZOSTER VACCINE (1 of 2) 12/14/2011 COVID-19 VACCINE ( - 2023-2 5 season) 2024 DEPRESSION SCREENING 09/30/2024 INFLUENZA VACCINE (Season Ended) 2025 Respiratory Syncytial Virus (RSV) Vaccine Pt: or over 60 yrs (1 - 1-dose 75+ series) 2036 HEPATITIS B VACCINE Aged Out No longe r eligible based on patient's age to complete this topic HIB VACCINE Aged Out No longer eligi ble based on patient's age to complete this topic HPV VACCINE Aged Out No longer eligi ble based on patient's age to complete this topic MENINGOCOCCAL (Group B) VACC INE SHARED DECISION-MAKING Aged Out No longer eligibl e based on patient's age to complete this topic MENINGOCOCCAL GROUPS A/C/Y/W VACCINE Aged Out No longer eligible b ased on patient's age to complete this topic PNEUMOCOCCAL VACCINE Aged Out No long er eligible based on patient's age to complete this topic
--- OUTSIDE RECORDS SUMMARY | 2025-01-04 10:41 | XMS_ITS | Clinical Summary ---
Author Organization [facility] Address [address] [place] [address] Care Team Providers Care It Security Engineer Name Role Phone Silver Ashford DO Primary Care Provider [phone] Chintan Quesada MD Unavailable [phone] Allergies Active Allergy Reactions Criticality Noted Date [...] 1 tablet (60 mg total) by mouth retail chain store area supervisor before breakfast 4 Active multivitamin with minerals tabletIndications: Vitamin Deficiency Prevention Take 1 tablet by mouth every morning Active cholecalciferol (Vitamin D3) 2000 unit capsuleIndications :Vitamin D Deficiency Take 1 capsule (2,000 Units total) by mouth retail chain store area supervisor before breakfast Active krill oil 500 mg capsuleIndications :supplement Take 1 capsule by mouth every morning Active cyanocobalamin, vitamin B-12, (Vitamin B-12) 5,000 mcg tablet, sublingualIndicati ons:Prevention of Vitamin B12 Deficiency [address] 1 tablet/capsul e under the tongue retail chain store area supervisor before breakfast Active acetaminophen (TYLENOL) 500 mg [...] nt, Subunit, Adjuvanted, PF, IM (Arexvy) 10/05/2023 Surgical History Surgery Date Site/Laterality Comments HYSTERECTOMY 09/30/1990 - 09/29/1991 KNEE SURGERY 09/30/1990 - 09/29/1991 ELBOW SURGERY 09/30/1999 - 09/29/2000 Bilateral SHOULDER SURGERY 09/30/2006 - 09/29/2007 OOPHORECTOMY 09/30/1990 - 09/29/1991 second ovary removed in 1991 Medical History Medical History Date Comments GERD (gastroesophageal reflux disease) Asthma Breast lump Family History Medical History Relation Name Comments No Known Problems Brother Heart disease Father Stroke Father Heart failure Mother Breast cancer Sister 1 No Known Problems Sister 2 No Known Problems Sister 3 Anesthesia problems Neg Hx Relation Name Status Comments Brother Alive Father Mother Alive Sister 1 Alive Sister 2 Alive Sister 3 Alive Social History Tobacco Use Types Packs/Day Years [...] on file Legal Sex Female 6:00 AM UNIVERSITY DEAN Gender Identity Not on file Sexual Orientation Not on file Obstetrics History Para Term AB IAB SAB Ectopic Multiple Livin g Live Births 1 1 1 0 0 0 0 0 0 1 1 Date Outcome GA Total Labor Labor/2nd/3rd Weight Sex Type Anes PTL Lucia A1 A5 Name Clin Term Last Filed Vital Signs Vital Sign Reading Time Taken Comments Blood Pressure 149/86 08/19/2024 2:36 PM UNIVERSITY DEAN Pulse 85 08/19/2024 2:36 PM UNIVERSITY DEAN Temperature 36.6 C (97.9 F) 08/19/2024 2:36 PM UNIVERSITY DEAN Respiratory Rate 16 08/19/2024 2:36 PM UNIVERSITY DEAN Oxygen Saturation 99% 08/19/2024 2:36 PM UNIVERSITY DEAN Inhaled Oxygen Concentration - - Weight 82.6 kg (182 lb 1.6 oz) 08/19/2024 2:36 P M UNIVERSITY DEAN Height 170.2 cm (5' 7.01 ) 08/19/2024 2:36 PM CS T Body Mass Index 28.51 08/19/2024 2:36 PM UNIVERSITY DEAN Plan of Treatment Health Maintenance Due Date Last Done Comments Breast Cancer Screening-Mammogram 1960 Colon Cancer Screening-Colonoscopy 1961 Depression Screening 1960 Hepatitis C Screening 1961 DTaP/Tdap/Td Vaccine (1 - Tdap) 1972 Hepatitis B Screening 12/14/1979 Regular Well Visit/Exam 18-64 12/14/1979 Zoster Vaccine (1 of 2) 12/14/2011 Covid-19 Vaccine Completed 06/19/2024, , 07/24/2022, Additional history exists Influenza Vaccine Completed 06/19/2024, , 06/25/2022, Additional history exists Pneumococcal vaccine <65 Aged Out No longer eligible based on patient's age to complete this topic Insurance [employer] OPEN ACCESS [employer] OPEN ACCESS Care Teams It Security Engineer Relationship Specialty Start Date End Date Silver Ashford DO PCP - General Internal Medicine 05/28/24 Chintan Quesada MD [address] [address] Referring Physician Obstetrics and Gynecology 05/28/24
--- OUTSIDE RECORDS SUMMARY | 2025-01-04 10:41 | XMS_ITS | Patient Health Record ---
[facility] Organization [facility] Address [address] [place] [address] Care Team Providers Care Two Needle Machine Operator Name Role Phone Amrit Duque Primary Care Provider [phone] Reason For Referral No Information Immunizations Vaccine Route Administration Date Status Comme nts COVID-19 Moderna 1ST IM Intramuscular 11/10/2020 Administered Sharepoint Developer: Moderna. Patient tolerated well. COVID-19 Moderna 2nd IM Intramuscular 12/08/2020 Administered EUA given. Brook ent tolerated well. COVID-19 Moderna Booster IM Intramuscular 08/03/2021 Administered Plan Of Treatment No Information Insurance Providers Payer Name Payer Address Payer Phone Subscriber Number Group Number Insured Name Patient Relationship to Insured Coverage Start Date Coverage End Date [employer] [address] [place], [place] [phone] [id number] Anastasiya Marin Self - patient is the insured
== END 2025-01-04 09:41 | disposition home or self-care (01) ==
LOC: ANHIMG 09:43
PROVIDERS: PCP Internal Medicine; Visit Provider Clinical Nurse Specialist
DX: M85.89 Other specified disorders of bone density and structure, multiple sites (principal); Z78.0 Asymptomatic menopausal state
CPT/HCPCS: 77080

== ENCOUNTER 2025-01-06 14:38 | Outpatient (CLI) | payer OTHER, SELFPAY ==
--- NOTE | ~2025-01-06 | MM_ITS ---
EXAMINATION: MM screening al BI w zehra HISTORY: Screening TECHNIQUE: Craniocaudal and mediolateral oblique 3-D tomosynthesis images were obtained and synthetic 2-D images were generated. CAD analysis was submitted and interpreted. COMPARISON: Comparison to multiple prior studies sequentially, with oldest reviewed study dated 08/02. BREAST PARENCHYMAL COMPOSITION: Not dense: There are scattered areas of fibroglandular density. FINDINGS: There is no evidence of suspicious mass, calcification, or architectural distortion to sugg est malignancy in either breast. There has been no suspicious interval change. IMPRESSION: 1. No mammographic evidence of malignancy. 2. Recommend routine screening mammography in one year. BI-RADS Category 1: Negative Reviewed, dictated and finalized at location A.
== END 2025-01-06 14:39 | disposition home or self-care (01) ==
LOC: MICIMG 14:38
PROVIDERS: PCP Internal Medicine; Visit Provider Clinical Nurse Specialist
DX: Z12.31 Encounter for screening mammogram for malignant neoplasm of breast (principal)
CPT/HCPCS: 77063; 77067